=== PATIENT | male | born 2000 | race Caucasian/White ===

== ENCOUNTER 2019-05-29 23:19 | Inpatient (IN) | payer OTHER ==
--- NOTE | 2019-05-30 00:59 | PDOC ---
History of Present Illness - General Chief Complaint: Syncope/Near Syncope Stated Complaint: SYNCOPE Time Seen by Provider: 05/30/19 00:51 History Source: Patient Exam Limitations: No Limitations - History of Present Illness Initial Comments: Pt is a 19 yo M, with PMH of asthma (intermittent, controlled with albuterol), and recent ringworm (treated with terbinafine), who is presenting after a syncopal episode. Pt states he was walking home after consuming "a few sips of alcohol at a [employer], but was not drunk," and was tripping over speed bumps in the street. Pt states he walked into a gas station, "feeling nauseous and the room was spinning," and "the next thing I knew I was leaving the gas station and I woke up on the ground". Pt is complaining of pain in his R shoulder and over his R forehead where he sustained a laceration. Pt was able to ambulate home (1-2 blocks) and his father brought him to the ED. The syncopal episode was unwitnessed, but pt denies any incontinence, tongue-biting, or prolonged confusion after waking up. Pt denies any recent fevers/chills, headache, vision changes, syncope, chest pain, palpitations, SOB, nausea/vomiting, abdominal pain , urinary symptoms, diarrhea/constipation, or leg swelling. Allergies: NKDA PCP: None Social: Pt smokes 1 ppd. Occasional alcohol use. Pt denies any illicit drug use. Pt denies any recent travel or sick contacts. Surgical: no relevant history. Family: no relevant history. No early cardiac deaths. 05/30/19 04:05 05/30/19 04:09 Past History - Travel Traveled outside of the country in the last 30 days: No Close contact w/someone who was outside of country & ill: No - Past Medical History Allergies/Adverse Reactions: Allergies Allergy/AdvReac Type Severity Reaction Status Date / Time No Known Allergies Allergy Verified 05/29/19 23:25 Asthma: Yes COPD: No - Surgical History GI Surgery: Yes (hernia repir x 2) - Immunization History Immunization Up to Date: Yes - Psycho Social/Smoking Cessation Hx Smoking History: Never smoked Hx Alcohol Use: Yes Drug/Substance Use Hx: No Cardiac Specific PMH - Complaint Specific PMHX Abdominal Aortic Aneurysm: No Angina: No Cardiac Arrhythmia: No Cardiac Stent: No GERD: No Myocardial Infarction: No Pacemaker: No Pulmonary Embolus: No Valvular Heart Disease: No Peripheral Vascular Disease: No Review of Systems - Review of Systems Able to Perform ROS?: Yes Is the patient limited [place]an proficient: No Constitutional: Yes: Weight Stable. No: Chills, Diaphoresis, Fever, Loss of Appetite, Malaise, Weakness HEENTM: No: Blurred Vision, Recent change in vision, Nose Congestion, Throat Pain, Throat Swelling, Difficulty Swallowing Respiratory: No: Cough, Orthopnea, Shortness of Breath Cardiac (ROS): Yes: Lightheadedness, Syncope. No: Chest Pain, Edema, Irregular Heart Rate, Palpitations, Chest Tightness ABD/GI: No: Constipated, Diarrhea, Nausea, Poor Appetite, Poor Fluid Intake, Vomiting, Abdominal cramping : No: Burning, Dysuria, Frequency, Flank Pain, Pain, Urgency Musculoskeletal: Yes: Joint Pain (R shoulder/clavicular pain). No: Back Pain, Muscle Pain, Muscle Weakness, Neck Pain Integumentary: No: Rash Neurological: Yes: Unsteady Gait, Dizziness. No: Headache, Numbness, Paresthesia, Seizure, Weakness, Ataxia Psychiatric: No: Sleep Pattern Change, Change in Appetite Endocrine: No: Increased Urine, Change in Weight Hematologic/Lymphatic: No: Anemia, Blood Clots, Easy Bleeding, Easy Bruising All Other Systems: Reviewed and Negative *Physical Exam - Vital Signs Last Vital Signs Temp Pulse Resp BP Pulse Ox 97.1 F L 80 20 110/59 L 99 05/29/19 23:26 05/29/19 23:26 05/29/19 23:26 05/29/19 23:26 05/29/19 23:26 - Physical Exam Comments: Vitals stable, pt afebrile. Pt in NAD, but mild amount of bleeding over R eyebrow, controlled with pressure. Thin body habitus. Pt alert and oriented x3. shank sander generally intact, muscular strength and sensation intact. Cerebellar exam WNL. No midline spinal tenderness, step-offs, or crepitus. Head normocephalic. Small (~1 cm) linear laceration over R eyebrow, clean with minimal bleeding. Small abrasions over R forehead, b/l knees. Edema of R shoulder, with TTP over anterior R shoulder and pain with abduction. R arm and elbow neurovascularly intact. Eyes PERRLA, EOMI. No nystagmus, visual maldonado intact. Oropharynx without erythema or exudates, no LAD b/l. No nasal congestion. Hearing intact. Clear heart sounds, S1/S2, no JVD, b/l pedal edema, or heart murmur. No reproducible chest wall TTP. Clear lung sounds, no respiratory distress, wheezes, crackles, or accessory muscle use. No abdominal or CVA tenderness to palpation, no rebound, no guarding. Abdomen soft, non-distended, and with normoactive bowel sounds. Skin without jaundice or rash. 05/30/19 04:10 Heart Score/ECG Review - History History: Slightly suspicious - Electrocardiogram EKG: Non specific repolarization disturbance - Age Age: </= 45 - Risk Factors Based on the list above the patient has:: No risk factors known - Troponin Troponin: </= normal limit - Score Heart Score - Total: 1 Eligibility Checklist For AMI - INCLUSION CRITERIA Prolonged (>30 minutes)ischemic pain: No 12 Lead ECG indicates AMI: No ST elevation >1 mm in at least 2 limb leads: No ST elevation>2 mm in at least 2 contiguous precordial leads: No LBBB with clinical symptoms consistent with an AMI: No - EXCLUSION CRITERIA Active internal bleeding or hx of hemorrhagic diathesis: No Known bleeding diathesis: No Major surgery or serious trauma within the previous 6 weeks: No History of cerebrovascular accident(CVA): No History of central nervous system structural abnormality: No History of malignant hypertension or uncontrolled HTN: No Hemostatic defects secondary to severe hepatic/renal disease: No Diabetic hemorrhagic retinopathy: No or recent delivery(within 6 weeks): No Patients currently receiving oral anticoagulants(INR>2): No Procedures - Laceration/Wound Repair Right Upper Anterior Lateral Face Wound Length: to 2.5 cm Wound Explored: clean, no foreign body present Wound's Depth, Shape: superficial, linear Irrigated w/ Saline: Yes Betadine Prep: Yes Anesthesia: 1% Lidocaine w/ Epi Amount of Anesthetic (ccs): 3 Wound Debrided: minimal Wound Repaired With: Sutures Suture Size/Type: 6:0 Number of Sutures: 2 Layer Closure: No Number of Deep Layer Sutures: 0 Sterile Dressing Applied: No Splint Applied: No Sling Applied: No ED Treatment Course - LABORATORY CBC & Chemistry Diagram: 05/30/19 01:23 05/30/19 01:23 - ADDITIONAL ORDERS Additional order review: Laboratory Results 05/30/19 05/30/19 05/30/19 01:23 01:23 01:14 Sodium 141 Potassium 3.6 Chloride 106 Carbon Dioxide 31 Anion Gap 4 L BUN 20.8 H Creatinine 1.0 Est GFR (CKD-EPI)AfAm 125.02 Est GFR (CKD-EPI)NonAf 107.87 POC Glucometer 102 Random Glucose 76 Calcium 9.2 Magnesium 2.4 Total Bilirubin 0.4 AST 34 ALT 41 Alkaline Phosphatase 68 Creatine Kinase 238 Creatine Kinase Index 0.7 CK-MB (CK-2) 1.9 Troponin I < 0.02 Total Protein 7.2 Albumin 4.6 05/30/19 05/30/19 01:23 01:14 RBC 5.13 MCV 91.1 MCHC 33.7 RDW 12.6 MPV 10.9 Neutrophils % 80.3 Lymphocytes % 11.6 Monocytes % 6.8 Eosinophils % 1.0 Basophils % 0.3 POC Glucometer 102 - RADIOLOGY Radiology Studies Ordered: Category Date Time Status HEAD CT WITHOUT CONTRAST [CT] Stat CT Scan 05/30/19 01:21 Taken CHEST PA & LAT [RAD] Stat Radiology 05/30/19 01:00 Taken CLAVICLE-RIGHT SIDE [RAD] Stat Radiology 05/30/19 01:18 Taken SHOULDER-RIGHT [RAD] Stat Radiology 05/30/19 01:21 Taken - Medications Given in the ED: ED Medications Discontinued Medications Generic Name Dose Route Start Last Admin Trade Name Freq PRN Reason Stop Dose Admin Acetaminophen 1,000 mg 05/30/19 01:45 05/30/19 03:02 Ofirmev Injection - IVPB 05/30/19 01:46 1,000 mg ONCE ONE Administration Sodium Chloride 1,000 mls @ 1,000 mls/hr 05/30/19 01:45 05/30/19 03:02 Normal Saline - IV 05/30/19 02:44 1,000 mls/hr ASDIR STA Administration Meclizine HCl 25 mg 05/30/19 02:44 05/30/19 03:02 Antivert - PO 05/30/19 02:45 25 mg ONCE ONE Administration Medical Decision Making - Medical Decision Making Pt was seen at bedside, also will be seen by attending Dr. Pascal. Pt presenting after syncopal episode. Will evaluate for electrolyte imbalances, toxicology/ illicit drugs, anemia. Will evaluate with x-rays and non-contrast head CT to eval for bleed vs fractures. Pts medical history and this event not as consistent with seizures. Pt to be admitted for observation after work-up. Provided 1 g ofirmev, 25 mg PO meclizine, boostrix, and 1 L IV NS for improvement of pain and vertigo. Will continue to reassess pt and monitor for symptomatic improvement. ECG: NSR, intervals WNL (HR 69, OH 120, QRS 102, QTc 428). TWI in V2 and aVL, with no reciprocal changes, no ST segment elevations. No prior for comparison. Chest, shoulder, and clavicle x-rays without acute pathology. Laceration repaired (see procedure note) CBC and CMP generally WNL. WBC 13, likely elevated from acute stress reaction/ fall. Trop <.02 with no significant ECG abnormalities Pt provided UA for utox, pending. Pt admitted to hospitalist team (Dr. Cheng) for observation given unwitnessed fall and syncopal episode this evening. Pt needs continued heart monitoring and likely evaluation by cardiology team. Pt stable and resting comfortably. States feeling better after interventions. 05/30/19 04:17 Discharge - Discharge Information Problems reviewed: Yes Clinical Impression/Diagnosis: Laceration Syncope Qualifiers: Syncope type: unspecified Qualified Code(s): R55 - Syncope and collapse Closed head injury Qualifiers: Encounter type: initial encounter Qualified Code(s): S09.90XA - Unspecified injury of head, initial encounter Condition: Stable - Admission Yes - Follow up/Referral - Patient Discharge Instructions - Post Discharge Activity
[2019-05-30] MEDS ORDERED: ACETAMINOPHEN 1000 MG/100 ML VIAL (NON FORMULARY) IVPB ONE (01:45)
[2019-05-30] MEDS ORDERED: SODIUM CHLORIDE 1,000 ML IV STA (01:45)
[2019-05-30 01:54] LABS: BASO % 0.3 % (0-2.0); HEMATOCRIT 46.7 % (35.4-49); HEMOGLOBIN 15.7 GM/dL (11.7-16.9); LYMPH % 11.6 % (8-40); MCH 30.7 pg (25.7-33.7); MCHC 33.7 g/dl (32.0-35.9); MEAN CELL VOLUME 91.1 fl (80-96); MEAN PLT VOLUME 10.9 fl (7.5-11.1); MONO % 6.8 % (3.8-10.2); NEUT % 80.3 % (42.8-82.8); PLATELET COUNT 144 K/MM3 (134-434); RBC 5.13 M/mm3 (4.00-5.60); RDW 12.6 % (11.9-15.9); WHITE BLOOD COUNT 13.8 K/mm3 (4.0-10.0)
[2019-05-30 02:32] LABS: ALBUMIN 4.6 g/dl (3.4-5.0); BILIRUBIN,TOTAL 0.4 mg/dL (0.2-1); BLOOD UREA NITROGEN 20.8 mg/dL (7-18); CALCIUM 9.2 mg/dL (8.5-10.1); MAGNESIUM 2.4 mg/dL (1.8-2.4); POTASSIUM 3.6 mmol/L (3.5-5.1); TOT PROT 7.2 g/dl (6.4-8.2)
[2019-05-30] MEDS ORDERED: MECLIZINE HCL 25 MG TABLET (FP) PO ONE (02:44)
[2019-05-30] MEDS ORDERED: DIPHTH,PERTUSS(ACELL),TET 0.5 ML DISP.SYRIN IM ONE ×2 (02:44→04:43)
[2019-05-30] MEDS ORDERED: MECLIZINE HCL 25 MG TABLET (FP) ONE (02:55)
[2019-05-30] MEDS ORDERED: ACETAMINOPHEN INJECTION 100 ML IVPB ONE (02:55)
--- NOTE | 2019-05-30 03:19 | PN ---
Teaching Attending Note Name of Resident: Dayanara No ATTENDING PHYSICIAN STATEMENT I saw and evaluated the patient. I reviewed the resident's note and discussed the case with the resident. I agree with the resident's findings and plan as documented. SUBJECTIVE: Patient is a 19 year old man with a PMH of Asthma (intermittent, controlled with albuterol), Tobacco use (1 PPD) and recent Ringworm infection (treated with terbinafine), who is presenting after a syncopal episode. Says he was walking home after spending time with his girlfriend jenny and consuming alcohol and smoking marijuana and was tripping over speed bumps in the street. States he walked into a gas station, "feeling nauseous and the room was spinning ," and "the next thing I knew I was leaving the gas station and I woke up on the ground". Has pain in his right shoulder and over his right forehead where he sustained a laceration. He was able to walk home (1-2 blocks) and his father brought him to the ER. The syncopal episode was unwitnessed. He denies any incontinence, tongue-biting, or prolonged confusion after waking up. Has chronic suprapubic pain. Denies fevers, chills, headache, vision changes, chest pain, palpitations, SOB, nausea, vomiting, abdominal pain, urinary symptoms, diarrhea, constipation, or leg swelling. Occasional alcohol use. Denies any other illicit drug use (besides marijuana), recent travel or sick contacts. No relevant family history or early cardiac deaths or premature CAD. OBJECTIVE: Alert Vital Signs Period Temp Pulse Resp BP Sys/Roe Pulse Ox Last 24 Hr 97.1 F 80 20 110/59 99 HEENT: No Jaundice, eye redness or discharge, PERRLA, EOMI. Normocephalic, laceration right forehead. External ears are normal and hearing is grossly intact. No nasal discharge. Neck: Supple, nontender. No palpable adenopathy or thyromegaly. No JVD Chest: Good effort. Clear to auscultation and percussion. Heart: Regular. No S3, rub or murmur Abdomen: Not distended, soft, nontender and no HSM. No rebound or guarding. Normal bowel sounds. Ext: Peripheral pulses intact. No leg edema. Skin: Warm and dry. No petechiae, fungal rash in forearms and no ecchymosis. Neuro: Alert. Oriented x3. CN 2-12 grossly intact. Sensation grossly intact in all four extremities and DTR are symmetric. Psych: Appropriate mood and affect. Good insight. Abnormal Lab Results 05/30/19 05/30/19 01:23 01:23 WBC 13.8 H Absolute Neuts (auto) 11.1 H Anion Gap 4 L BUN 20.8 H ASSESSMENT AND PLAN: 1. Syncope - Cause unclear. May have been intoxicated - alcohol level and urine toxicology screen pending. No acute abnormality on head CT, CXR, clavicle and shoulder xrays. EKG shows NSR with t wave inversion in V1-2 but initial troponin is negative. Will get ECHO, monitor on telemetry, get carotid doppler and consult cardiology. Repeat EKG and troponin. Leukocytosis is unexplained. Will repeat CBC and if still elevated will evaluate for tick-borne disease. Get STI panel. 2. Tobacco Use Counseled on risks associated with tobacco use. We will provide patient all the necessary assistance to facilitate smoking cessation and prescribe Nicotine patch. 3. Alcohol use - Implement [facility] alcohol withdrawal protocol and do neurochecks. Implement seizure, fall and aspiration precautions. Treat with thiamine and folic acid and monitor electrolytes (Ca,Mg,K,P). Counseled patient about abstaining from alcohol. Will consult media services specialist and refer to alcohol detox upon discharge. 4. DVT prophylaxis - Lovenox 40 mg SQ q 24 hours. 5. Advance directives - Full code
--- NOTE | 2019-05-30 03:51 | PDOC ---
Documentation entered by Janeth Ogden SCRIBE, acting as scribe for Jamey Pascal MD. Jamey Pascal MD: This documentation has been prepared by the pérezibe, Janeth Ogden SCRIBE, under my direction and personally reviewed by me in its entirety. I confirm that the documentation accurately reflects all work, treatment, procedures, and medical decision making performed by me. Attending Attestation - Resident Resident Name: OsielCherelle - ED Attending Attestation I have performed the following: I have examined & evaluated the patient, The case was reviewed & discussed with the resident, I agree w/resident's findings & plan, Exceptions are as noted - HPI HPI: 05/30/19 03:50 19 M with h/o asthma presenting to ED with syncopal episode. Pt states he had a few drinks tonight. On his way home, he began to feel lightheaded. Pt stopped by a gas station and subsequently lost consciousness. Does not know how long he was unconscious for but recalls waking up on the ground. Pt denies any CP/SOB/ palpitations at any point. - Physicial Exam PE: 05/30/19 03:51 "GENERAL: Awake, alert, and fully oriented, in no acute distress. HEAD: + laceration to R forehead EYES: PERRLA, EOMI, sclera anicteric, conjunctiva clear ENT: Auricles normal inspection, hearing grossly normal, nares patent, oropharynx clear without exudates. Moist mucosa NECK: Nontender, no stepoffs, Normal ROM, supple, no lymphadenopathy, JVD, or masses LUNGS: Breath sounds equal, clear to auscultation bilaterally. No wheezes, and no crackles HEART: Regular rate and rhythm, normal S1 and S2, no murmurs, rubs or gallops ABDOMEN: Soft, nontender, normoactive bowel sounds. No guarding, no rebound. No masses EXTREMITIES: Normal range of motion, no edema. No clubbing or cyanosis. No cords, erythema, or tenderness NEUROLOGICAL: Cranial nerves II through XII intact. 5/5 strength and sensation in all extremities, Normal speech, normal gait, normal cerebellar function SKIN: Warm, Dry, normal turgor, no rashes or lesions noted. - Medical Decision Making 05/30/19 03:51 19 M with syncopal episode. - Labs - CT head - Lac repair
--- NOTE | 2019-05-30 04:47 | HP ---
CHIEF COMPLAINT: PCP: none HISTORY OF PRESENT ILLNESS: This is a 19 year old male with past medical history of asthma, inguinal and umbilical hernia s/p repair, presenting the ED after a syncopal episode. Pt was visiting his girlfriend [facility] over the weekend and had 1 bottle of whisky, smoked a joint of marijuana, 5-6 cigarettes and drank 4-5 shots of whisky on the train home from [facility] yesterday. After going home, pt felt hungry and walked to the gas station when he felt extremely dizzy, lost consciousness and fell to the ground. Pt endorses experiencing blurry vision and feeling nauseous prior to losing consciousness. He woke up after a few minutes when he realized he had fallen to the ground. He knew where he was but was a little confused. He walked back home where he noticed blood on his forehead and started experiencing a 8/10 headache and 8/10 shoulder pain which prompted him to come to the ED. Currently, pt admits to mild headache, nausea, right shoulder pain, right jaw pain, right knee pain Denies chest pain, palpitations, vomiting, prior history of syncope and family history of sudden cardiac or genetic abnormalities. Pt also reported a history of suprapubic pain for the past few years every morning after waking up. Sometimes the pain is associated with diarrhea. Pt was told that he has a mild gluten allergy and now tries to avoid it as much as he can. ER course was notable for: (1) CBC with leukocytosis 13.8, CMP unremarkable (2) Head, clavicle, shoulder and chest Xray with no acute fractures or pathology (3) orfimev for pain. EKG was sinus rhythm with non specific T wave change Recent Travel: [facility] to visit girlfriend PAST MEDICAL HISTORY: as above PAST SURGICAL HISTORY: inguinal and umbilical hernia repair Social History: Smokin-20 cig a day since 9 yrs old Alcohol: 1 bottle of whiskey on weekend. a couple of shots during the week Drugs: marijuana daily Allergies No Known Allergies Allergy (Verified 05/29/19 23:25) HOME MEDICATIONS: REVIEW OF SYSTEMS CONSTITUTIONAL: Absent: fever, chills, diaphoresis, generalized weakness, malaise, loss of appetite, weight change HEENT: visual changes Absent: rhinorrhea, nasal congestion, throat pain, throat swelling, difficulty swallowing, mouth swelling, ear pain, eye pain, CARDIOVASCULAR: syncope, lightheadedness Absent: chest pain, palpitations, irregular heart rate, , peripheral edema RESPIRATORY: Absent: cough, shortness of breath, dyspnea with exertion, orthopnea, wheezing, stridor, hemoptysis GASTROINTESTINAL:nausea, chronic abdominal pain Absent: , abdominal distension, vomiting, diarrhea, constipation, melena, hematochezia GENITOURINARY: Absent: dysuria, frequency, urgency, hesitancy, hematuria, flank pain, genital pain MUSCULOSKELETAL: right shoulder arthralgia Absent: myalgia,, joint swelling, back pain, neck pain SKIN: fungal rash Absent: itching, pallor HEMATOLOGIC/IMMUNOLOGIC: Absent: easy bleeding, easy bruising, lymphadenopathy, frequent infections ENDOCRINE: Absent: unexplained weight gain, unexplained weight loss, heat intolerance, cold intolerance NEUROLOGIC: headache Absent: focal weakness or paresthesias, dizziness, unsteady gait, seizure, mental status changes, bladder or bowel incontinence PSYCHIATRIC: Absent: anxiety, depression, suicidal or homicidal ideation, hallucinations. PHYSICAL EXAMINATION Vital Signs - 24 hr 05/29/19 05/30/19 23:26 04:40 Temperature 97.1 F L Pulse Rate 80 Pulse Rate [ 73 Right side Sitting] Pulse Rate [ 77 Right side Standing] Pulse Rate [ 65 Right side Supine] Respiratory 20 Rate Blood Pressure 110/59 L Blood Pressure 110/64 [Right side Sitting] Blood Pressure 104/60 [Right side Standing] Blood Pressure 122/69 [Right side Supine] O2 Sat by Pulse 99 Oximetry (%) GENERAL: Awake, alert, and fully oriented, in mild distress. HEAD: Normal right eyebrow laceration s/p suture EYES: Pupils equal, round and reactive to light, extraocular movements intact, sclera anicteric, conjunctiva clear. No lid lag. EARS, NOSE, THROAT: oropharynx clear without exudates. Moist mucous membranes. NECK: Normal range of motion, supple without lymphadenopathy, JVD, or masses. LUNGS: Breath sounds equal, clear to auscultation bilaterally. No wheezes, and no crackles. No accessory muscle use. HEART: Regular rate and rhythm, normal S1 and S2 without murmur, rub or gallop. ABDOMEN: Soft, chronic suprapubic tenderness, not distended, normoactive bowel sounds, no guarding, no rebound, no masses. No hepatomegaly or splenomegaly. MUSCULOSKELETAL: Normal range of motion at all joints except right shoulder extension and abduction. No bony deformities or tenderness. No CVA tenderness. UPPER EXTREMITIES: 2+ pulses, warm, well-perfused. No cyanosis. No clubbing. No peripheral edema. LOWER EXTREMITIES: 2+ pulses, warm, well-perfused. No calf tenderness. No peripheral edema. NEUROLOGICAL: Cranial nerves II-XII intact. Normal speech. Normal gait. PSYCHIATRIC: Cooperative. Good eye contact. Appropriate mood and affect. SKIN: Warm, dry, normal turgor, fungal rash in b/l forearms, scratches and cuts from fall im knees and legs Laboratory Results - last 24 hr 05/30/19 05/30/19 05/30/19 01:14 01:23 01:23 WBC 13.8 H RBC 5.13 Hgb 15.7 Hct 46.7 MCV 91.1 MCH 30.7 MCHC 33.7 RDW 12.6 Plt Count 144 MPV 10.9 Absolute Neuts (auto) 11.1 H Neutrophils % 80.3 Lymphocytes % 11.6 Monocytes % 6.8 Eosinophils % 1.0 Basophils % 0.3 Nucleated RBC % 0 Sodium Potassium Chloride Carbon Dioxide Anion Gap BUN Creatinine Est GFR (CKD-EPI)AfAm Est GFR (CKD-EPI)NonAf POC Glucometer 102 Random Glucose Calcium Magnesium Total Bilirubin AST ALT Alkaline Phosphatase Creatine Kinase 238 Creatine Kinase Index 0.7 CK-MB (CK-2) 1.9 Troponin I < 0.02 Total Protein Albumin 05/30/19 01:23 WBC RBC Hgb Hct MCV MCH MCHC RDW Plt Count MPV Absolute Neuts (auto) Neutrophils % Lymphocytes % Monocytes % Eosinophils % Basophils % Nucleated RBC % Sodium 141 Potassium 3.6 Chloride 106 Carbon Dioxide 31 Anion Gap 4 L BUN 20.8 H Creatinine 1.0 Est GFR (CKD-EPI)AfAm 125.02 Est GFR (CKD-EPI)NonAf 107.87 POC Glucometer Random Glucose 76 Calcium 9.2 Magnesium 2.4 Total Bilirubin 0.4 AST 34 ALT 41 Alkaline Phosphatase 68 Creatine Kinase Creatine Kinase Index CK-MB (CK-2) Troponin I Total Protein 7.2 Albumin 4.6 ASSESSMENT/PLAN: Syncope most likely due to intoxication cannot r/o cardiac or neurological causes no family of genetic cardiac disease or sudden cardiac head CT negative admit to tele cardiac monitoring echo for cardiac assessment repeat EKG as pt had non specific ST changes in V1 and V2 initial trop neg. repeat pending orthostatics negative cardio Dr Ojeda consulted neuro checks alcohol level sent to assess probability of intoxication Alcohol abuse with marijuana abuse however CIWA 1 on admission monitor for withdrawal started librium protocol fall and seizure precautions Utox sent alcohol level sent started on thiamine, folate and multivitamins Leukocytosis w/o clear infectious source UA and CXR negative currently afebrile and only complaints of chronic suprapubic pain CBC with leukocytosis 13.8 with left shift repeat CBC pending this am if WBC continue to be elevated, investigae further poss lyme or tick born in the setting [place] recent [place] travel? STD panel with HIV and chlamydia & gonorrhea sent FEN regular diet no standing fluids monitor lytes DVT lovenox daily Visit type - Emergency Visit Emergency Visit: Yes ED Registration Date: 05/30/19 Care time: The patient presented to the Emergency Department on the above date and was hospitalized for further evaluation of their emergent condition. - New Patient This patient is new to me today: Yes Date on this admission: 05/30/19 - Critical Care Critical Care patient: No ATTENDING PHYSICIAN STATEMENT I saw and evaluated the patient. I reviewed the resident's note and discussed the case with the resident. I agree with the resident's findings and plan as documented. SUBJECTIVE: OBJECTIVE: ASSESSMENT AND PLAN:
[2019-05-30 05:02] LABS: EPI CELLS 2.4 /HPF (0-5/HPF); HYALINE CASTS 10 /lpf (0-8); PH,URINE 6.5 (5.0-8.0); URINE APPEARANCE CLEAR; URINE BACTERIA 0.5 /hpf (NEGATIVE); URINE BILIRUBIN NEGATIVE (NEGATIVE); URINE COLOR YELLOW; URINE GLUCOSE (UA) NEGATIVE (NEGATIVE); URINE KETONE TRACE (NEGATIVE); URINE LEUK ESTERASE NEGATIVE (NEGATIVE); URINE NITRITE NEGATIVE (NEGATIVE); URINE PROTEIN 1+ (NEGATIVE); URINE RBC 0 /hpf (0-4); URINE UROBILINOGEN 0.2 mg/dL (0.2-1.0); URINE WBC 1 /hpf (0-5)
[2019-05-30 05:19] VITALS: BMI 19.7
[2019-05-30] MEDS ORDERED: ACETAMINOPHEN 325 MG TABLET (FP) PO PRN (05:46)
[2019-05-30] MEDS ORDERED: chlordiazePOXIDE HCL 10 MG CAPSULE PO PRN (05:55)
[2019-05-30] MEDS: chlordiazePOXIDE HCL 25 MG CAPSULE PO SCH ×2 (06:11→14:04)
--- NOTE | 2019-05-30 07:24 | PN ---
Progress Note, Physician History of Present Illness: This is a 19 year old male with past medical history of asthma, inguinal and umbilical hernia s/p repair, presenting the ED after a syncopal episode. Pt was visiting his girlfriend [facility] over the weekend and had 1 bottle of whisky, smoked a joint of marijuana, 5-6 cigarettes and drank 4-5 shots of whisky on the train home from [facility] yesterday. After going home, pt felt hungry and walked to the gas station when he felt extremely dizzy, lost consciousness and fell to the ground. Pt endorses experiencing blurry vision and feeling nauseous prior to losing consciousness. He woke up after a few minutes when he realized he had fallen to the ground. He knew where he was but was a little confused. He walked back home where he noticed blood on his forehead and started experiencing a 8/10 headache and 8/10 shoulder pain which prompted him to come to the ED. Currently, pt admits to mild headache, nausea, right shoulder pain, right jaw pain, right knee pain Denies chest pain, palpitations, vomiting, prior history of syncope and family history of sudden cardiac or genetic abnormalities. Pt also reported a history of suprapubic pain for the past few years every morning after waking up. Sometimes the pain is associated with diarrhea. Pt was told that he has a mild gluten allergy and now tries to avoid it as much as he can. ER course was notable for: (1) CBC with leukocytosis 13.8, CMP unremarkable (2) Head, clavicle, shoulder and chest Xray with no acute fractures or pathology (3) orfimev for pain. EKG was sinus rhythm with non specific T wave change - Current Medication List Current Medications: Active Medications Acetaminophen (Tylenol -) 650 mg PO Q6H PRN PRN Reason: PAIN LEVEL 1-5 Last Admin: 05/30/19 06:10 Dose: 650 mg Chlordiazepoxide HCl (Librium -) 10 mg PO Q12H PRN PRN Reason: Signs/symptoms of Withdrawal Stop: 06/01/19 23:59 Chlordiazepoxide HCl (Librium -) 10 mg PO Q8H PRN PRN Reason: Signs/symptoms of Withdrawal Stop: 05/31/19 23:59 Chlordiazepoxide HCl (Librium -) 25 mg PO Q8H [facility] Stop: 05/30/19 21:01 Last Admin: 05/30/19 06:11 Dose: 25 mg Chlordiazepoxide HCl (Librium -) 15 mg PO Q8H [facility] Stop: 05/31/19 21:01 Chlordiazepoxide HCl (Librium -) 10 mg PO Q8H [facility] Stop: 06/01/19 21:01 Chlordiazepoxide HCl (Librium -) 10 mg PO ONCE ONE Stop: 06/02/19 05:01 Enoxaparin Sodium (Lovenox -) 40 mg SQ DAILY [facility] Folic Acid (Folic Acid -) 1 mg PO DAILY [facility] Multivitamins/Minerals/Vitamin C (Tab-A-Vit -) 1 tab PO DAILY [facility] Thiamine HCl (Vitamin B1 -) 100 mg PO DAILY [facility] - Objective Vital Signs: Vital Signs Temperature 97.1 F L 05/29/19 23:26 Pulse Rate 75 05/30/19 05:14 Respiratory Rate 20 05/30/19 05:14 Blood Pressure 125/63 05/30/19 05:14 O2 Sat by Pulse Oximetry (%) 100 05/30/19 05:24 Additional Findings/Remarks: GENERAL: Awake, alert, and fully oriented, in mild distress. HEAD: Normal right eyebrow laceration s/p suture EYES: Pupils equal, round and reactive to light, extraocular movements intact, sclera anicteric, conjunctiva clear. No lid lag. EARS, NOSE, THROAT: oropharynx clear without exudates. Moist mucous membranes. NECK: Normal range of motion, supple without lymphadenopathy, JVD, or masses. LUNGS: Breath sounds equal, clear to auscultation bilaterally. No wheezes, and no crackles. No accessory muscle use. HEART: Regular rate and rhythm, normal S1 and S2 without murmur, rub or gallop. ABDOMEN: Soft, chronic suprapubic tenderness, not distended, normoactive bowel sounds, no guarding, no rebound, no masses. No hepatomegaly or splenomegaly. MUSCULOSKELETAL: Normal range of motion at all joints except right shoulder extension and abduction. No bony deformities or tenderness. No CVA tenderness. UPPER EXTREMITIES: 2+ pulses, warm, well-perfused. No cyanosis. No clubbing. No peripheral edema. LOWER EXTREMITIES: 2+ pulses, warm, well-perfused. No calf tenderness. No peripheral edema. NEUROLOGICAL: Cranial nerves II-XII intact. Normal speech. Normal gait. PSYCHIATRIC: Cooperative. Good eye contact. Appropriate mood and affect. SKIN: Warm, dry, normal turgor, fungal rash in b/l forearms, scratches and cuts from fall im knees and legs Labs: CBC, BMP 05/30/19 01:23 05/30/19 01:23 - ....Imaging X-ray: Report Reviewed (Head, clavicle, shoulder and chest Xray with no acute fractures or pathology) Problem List - Problems (1) Prophylactic measure Assessment/Plan: FEN regualr diet no additional IVF needed monitor electrolytes nutritional supplements; DVT lovenox Dispo maintain on tele full code discharge planning to home Code(s): Z29.9 - ENCOUNTER FOR PROPHYLACTIC MEASURES, UNSPECIFIED (2) Intoxication by drug Assessment/Plan: tox screen positive for marijuana ETOH <3.0 CIWA 1 started on librium protocol addiction medicine consultation requested Code(s): F19.929 - OTH PSYCHOACTIVE SUBSTANCE USE, UNSP WITH INTOXICATION, UNSP (3) ETOH abuse Assessment/Plan: ETOH <3.0 CIWA 1 started on librium protocol addiction medicine consultation requested Code(s): F10.10 - ALCOHOL ABUSE, UNCOMPLICATED (4) Leukocytosis Assessment/Plan: aberile WBC 8.3 down from 13.8 monitor temp, cbc Code(s): D72.829 - ELEVATED WHITE BLOOD CELL COUNT, UNSPECIFIED (5) Laceration Code(s): [id number] - (6) Syncope Assessment/Plan: syncopal w/u in progress TTE, carotid Doppler pending cardiology consultation appreciate fall precautions maintain on tele Code(s): R55 - SYNCOPE AND COLLAPSE Qualifiers: Syncope type: unspecified Qualified Code(s): R55 - Syncope and collapse Visit type - Emergency Visit Emergency Visit: Yes ED Registration Date: 05/30/19 Care time: The patient presented to the Emergency Department on the above date and was hospitalized for further evaluation of their emergent condition. - New Patient This patient is new to me today: Yes Date on this admission: 05/30/19 - Critical Care Critical Care patient: No - Discharge Referral Referred to [facility] Med P.C.: No
[2019-05-30 08:03] LABS: COCAINE, UR NEGATIVE ng/ml (CUTOFF=300); METHADONE, UR NEGATIVE ng/ml (CUTOFF=300); OPIATES, URI NEGATIVE ng/ml (CUTOFF=300); PHENCYCLIDINE,URINE NEGATIVE ng/ml (CUTOFF=25); URINE AMPHETAMINES NEGATIVE ng/ml (CUTOFF=500); URINE BARBITURATES NEGATIVE ng/ml (CUTOFF=200); URINE BENZODIAZEPINES NEGATIVE ng/ml (CUTOFF=200)
[2019-05-30 08:32] LABS: BASO % 0.4 % (0-2.0); EOS % 2.6 % (0-4.5); HEMATOCRIT 42.1 % (35.4-49); HEMOGLOBIN 14.5 GM/dL (11.7-16.9); LYMPH % 23.8 % (8-40); MCH 31.1 pg (25.7-33.7); MCHC 34.4 g/dl (32.0-35.9); MEAN CELL VOLUME 90.5 fl (80-96); MEAN PLT VOLUME 10.7 fl (7.5-11.1); MONO % 8.9 % (3.8-10.2); NEUT % 64.3 % (42.8-82.8); PLATELET COUNT 127 K/MM3 (134-434); RBC 4.65 M/mm3 (4.00-5.60); RDW 12.5 % (11.9-15.9); WHITE BLOOD COUNT 8.3 K/mm3 (4.0-10.0)
[2019-05-30 08:43] LABS: ALBUMIN 3.9 g/dl (3.4-5.0); BILIRUBIN,TOTAL 0.7 mg/dL (0.2-1); BLOOD UREA NITROGEN 18.3 mg/dL (7-18); CALCIUM 8.6 mg/dL (8.5-10.1); CREATININE 0.8 mg/dL (0.55-1.3); MAGNESIUM 2.3 mg/dL (1.8-2.4); PHOSPHOROUS 4.2 mg/dL (2.5-4.9); POTASSIUM 3.8 mmol/L (3.5-5.1)
[2019-05-30 08:50] VITALS: PULSE 66
[2019-05-30] MEDS ORDERED: KETOROLAC TROMETHAMINE 30 MG/1 ML VIAL IM ONE (09:12)
--- NOTE | 2019-05-30 09:32 | CON.CARD ---
Consult Consult Specialty:: Cardiology Referred by:: Hospitalist Medicine Reason for Consultation:: Syncope - History of Present Illness Chief Complaint: Syncope History of Present Illness: This is a 19 year old male with past medical history of asthma, inguinal and umbilical hernia s/p repair, presented the ED after a syncopal episode. Pt was visiting his girlfriend [facility] over the weekend and had 1 bottle of whisky, smoked a joint of marijuana, 5-6 cigarettes and drank 4-5 shots of whisky on the train home from [facility] yesterday. After going home, pt felt hungry and walked to the gas station when he felt extremely dizzy, lost consciousness and fell to the ground striking his head and right shoulder. Pt endorses experiencing blurry vision and feeling nauseous prior to losing consciousness. He woke up after a few minutes when he realized he had fallen to the ground. He knew where he was but was a little confused. He walked back home where he noticed blood on his forehead and started experiencing a 8/10 headache and 8/10 shoulder pain which prompted him to come to the ED. Currently, pt admits to mild headache, nausea, right shoulder pain, right jaw pain, right knee pain Denies chest pain, palpitations, vomiting, prior history of syncope and family history of sudden cardiac or genetic abnormalities. ER course was notable for: (1) CBC with leukocytosis 13.8, CMP unremarkable (2) Head, clavicle, shoulder and chest Xray with no acute fractures or pathology (3) orfimev for pain. EKG was sinus rhythm with non specific T wave change - History Source History Provided By: Patient Limitations to Obtaining History: No Limitations - Alcohol/Substance Use Hx Alcohol Use: Yes - Smoking History Smoking history: Current every day smoker Have you smoked in the past 12 months: Yes Aproximately how many cigarettes per day: 20 Home Medications - Allergies Allergies/Adverse Reactions: Allergies Allergy/AdvReac Type Severity Reaction Status Date / Time gluten Allergy Mild Verified 05/30/19 05:30 pollen extracts Allergy Mild Verified 05/30/19 05:30 Review of Systems - Review of Systems Musculoskeletal: reports: Joint Pain (Right shoulder) Neurological: reports: Headache Vital Signs: Vital Signs Temperature 98.0 F 05/30/19 08:50 Pulse Rate 66 05/30/19 08:50 Respiratory Rate 18 05/30/19 08:50 Blood Pressure 117/86 11/11/19 08:50 O2 Sat by Pulse Oximetry (%) 100 05/30/19 05:24 Constitutional: Yes: No Distress, Calm, Thin Neck: Yes: Supple Respiratory: Yes: Regular, CTA Bilaterally Gastrointestinal: Yes: Normal Bowel Sounds, Soft Cardiovascular: Yes: Regular Rate and Rhythm JVD: No Carotid Bruit: No Heart Sounds: Yes: S1, S2 Musculoskeletal: Yes: Muscle Pain (right deltoid discomfort) Edema: No - Other Data Labs, Other Data: CBC, BMP 05/30/19 07:48 05/30/19 07:48 Troponin, BNP 05/30/19 01:23 Troponin I < 0.02 Troponin, BNP 05/30/19 01:23 Troponin I < 0.02 Imaging - Results Chest X-ray: Report Reviewed (NAD) X-ray: Report Reviewed (No shoulder discomfort) Problem List - Problems (1) Contusion of right shoulder Code(s): S40.011A - CONTUSION OF RIGHT SHOULDER, INITIAL ENCOUNTER Qualifiers: Encounter type: initial encounter Qualified Code(s): S40.011A - Contusion of right shoulder, initial encounter (2) Closed head injury Code(s): S09.90XA - UNSPECIFIED INJURY OF HEAD, INITIAL ENCOUNTER Qualifiers: Encounter type: initial encounter Qualified Code(s): S09.90XA - Unspecified injury of head, initial encounter (3) ETOH abuse Code(s): F10.10 - ALCOHOL ABUSE, UNCOMPLICATED (4) Intoxication by drug Code(s): F19.929 - OTH PSYCHOACTIVE SUBSTANCE USE, UNSP WITH INTOXICATION, UNSP Qualifiers: Complication of substance-induced condition: uncomplicated Qualified Code(s ): F19.920 - Other psychoactive substance use, unspecified with intoxication, uncomplicated (5) Syncope Code(s): R55 - SYNCOPE AND COLLAPSE Qualifiers: Syncope type: unspecified Qualified Code(s): R55 - Syncope and collapse Assessment/Plan 05/30/2019 Echo: Normal LV and RV size and fxn, mild TR 05/30/2019 Carotid US: No sig stenosis 1. Syncope in context of alcohol and marijuana intoxication 2. Right shoulder contusion P:1. Abstinence from ETOH and toxic behaviors 2. NSAIDS, cool compression to right shoulder contusion 3. D/c planning
[2019-05-30] MEDS ORDERED: THIAMINE HCL 100 MG TABLET (FP) PO SCH (10:00)
[2019-05-30] MEDS ORDERED: MULTIVITAMINS (DAILY MVI) TABLET (FP) PO SCH (10:00)
[2019-05-30] MEDS ORDERED: ENOXAPARIN NA (PORCINE) 40 MG/0.4 ML DISP.SYRIN SQ SCH (10:00)
[2019-05-30] MEDS ORDERED: FOLIC ACID 1 MG TABLET (FP) PO SCH (10:00)
--- NOTE | 2019-05-30 11:53 | ECHO ---
Name: ALAINA CERVANTES Exam:Adult Echocardiogram Study Date: 05/30/2019 10:16 AM Age: 19 yrs Reason For Study: SYNCOPE Height: 73 in Weight: 149 lb BSA: 1.9 m2 MMode/2D Measurements & Calculations IVSd: 0.71 cm Ao root diam: 2.4 cm LVIDd: 3.7 cm LA dimension: 1.8 cm LVIDs: 2.1 cm LVPWd: 0.80 cm LVPWs: 1.3 cm EDV(Teich): 58.5 ml ESV(Teich): 13.6 ml LVOT diam: 1.8 cm RV S Tirso: 15.6 cm/sec Doppler Measurements & Calculations MV E max tirso: 70.1 cm/sec Ao V2 max: 119.4 cm/sec MV A max tirso: 31.1 cm/sec Ao max P.7 mmHg MV E/A: 2.3 MV dec time: 0.12 sec CATIE(V,D): 1.5 cm2 LV V1 max P.0 mmHg TR max tirso: 226.7 cm/sec LV V1 max: 71.6 cm/sec TR max P.6 mmHg PA V2 max: 116.7 cm/sec Med Peak E' Tirso: 7.8 cm/sec PA max P.5 mmHg Med E/e': 9.0 Lat Peak E' Tirso: 15.8 cm/sec Lat E/e': 4.4 Procedure A complete two-dimensional transthoracic echocardiogram was performed (2D, M-mode, Doppler and color flow Doppler). Left Ventricle The left ventricle is normal in size. Left ventricular systolic function is normal. No regional wall motion abnormalities noted. Right Ventricle The right ventricle is normal size. The right ventricular systolic function is normal. RV systolic TD I is 16 cm/s. Atria The left atrial size is normal. Right atrial size is normal. Mitral Valve The mitral valve is normal in structure and function. There is no mitral regurgitation noted. Tricuspid Valve The tricuspid valve is normal in structure and function. There is mild tricuspid regurgitation. Right ventricular systolic pressure is normal. Aortic Valve The aortic valve is normal in structure and function. No aortic regurgitation is present. Pulmonic Valve The pulmonic valve is not well visualized. Great Vessels The aortic root is normal size. Pericardium/Pleura There is no pericardial effusion. Interpretation Summary The left ventricle is normal in size. Left ventricular systolic function is normal. No regional wall motion abnormalities noted. The right ventricular systolic function is normal. The left atrial size is normal. Right atrial size is normal. There is mild tricuspid regurgitation. Right ventricular systolic pressure is normal. There is no pericardial effusion. Ashish Canela MD 05/30/2019 11:52 AM
[2019-05-30] MEDS ORDERED: traMADol HCL 50 MG TABLET PO PRN (13:20)
--- NOTE | 2019-05-30 13:34 | DS ---
Physical Exam: SUBJECTIVE: Patient seen and examined This is a 19 year old male with past medical history of asthma, inguinal and umbilical hernia s/p repair, presenting the ED after a syncopal episode. Pt was visiting his girlfriend [facility] [place] over the weekend and had 1 bottle of whisky, smoked a joint of marijuana, 5-6 cigarettes and drank 4-5 shots of whisky on the train home from [facility] [place] yesterday. After going home, pt felt hungry and walked to the gas station when he felt extremely dizzy, lost consciousness and fell to the ground. Pt endorses experiencing blurry vision and feeling nauseous prior to losing consciousness. He woke up after a few minutes when he realized he had fallen to the ground. He knew where he was but was a little confused. He walked back home where he noticed blood on his forehead and started experiencing a 8/10 headache and 8/10 shoulder pain which prompted him to come to the ED. Currently, pt admits to mild headache, nausea, right shoulder pain, right jaw pain, right knee pain Denies chest pain, palpitations, vomiting, prior history of syncope and family history of sudden cardiac or genetic abnormalities. OBJECTIVE: Vital Signs Period Temp Pulse Resp BP Sys/Roe Pulse Ox Last 24 Hr 97.1 F-98.0 F 65-80 18-20 104-125/59-86 99-100 PHYSICAL EXAM GENERAL: The patient is awake, alert, and fully oriented, in no acute distress. HEAD: Normal with no signs of trauma. EYES: PERRL, extraocular movements intact, sclera anicteric, conjunctiva clear. ENT: Ears normal, nares patent, oropharynx clear without exudates, moist mucous membranes. NECK: Trachea midline, full range of motion, supple. LUNGS: Breath sounds equal, clear to auscultation bilaterally, no wheezes, no crackles, no accessory muscle use. HEART: Regular rate and rhythm, S1, S2 without murmur, rub or gallop. ABDOMEN: Soft, nontender, nondistended, normoactive bowel sounds, no guarding, no rebound, no hepatosplenomegaly, no masses. EXTREMITIES: 2+ pulses, warm, well-perfused, no edema. NEUROLOGICAL: Cranial nerves II through XII grossly intact. Normal speech, gait not observed. PSYCH: Normal mood, normal affect. SKIN: Warm, dry, normal turgor, no rashes or lesions noted. LABS Laboratory Results - last 24 hr 05/30/19 05/30/19 05/30/19 01:14 01:23 01:23 WBC 13.8 H RBC 5.13 Hgb 15.7 Hct 46.7 MCV 91.1 MCH 30.7 MCHC 33.7 RDW 12.6 Plt Count 144 MPV 10.9 Absolute Neuts (auto) 11.1 H Neutrophils % 80.3 Lymphocytes % 11.6 Monocytes % 6.8 Eosinophils % 1.0 Basophils % 0.3 Nucleated RBC % 0 Sodium Potassium Chloride Carbon Dioxide Anion Gap BUN Creatinine Est GFR (CKD-EPI)AfAm Est GFR (CKD-EPI)NonAf POC Glucometer 102 Random Glucose Calcium Phosphorus Magnesium Total Bilirubin AST ALT Alkaline Phosphatase Creatine Kinase 238 Creatine Kinase Index 0.7 CK-MB (CK-2) 1.9 Troponin I < 0.02 Total Protein Albumin Urine Color Urine Appearance Urine pH Ur Specific [place] Urine Protein Urine Glucose (UA) Urine Ketones Urine Blood Urine Nitrite Urine Bilirubin Urine Urobilinogen Ur Leukocyte Esterase Urine WBC (Auto) Urine RBC (Auto) Urine Casts (Auto) U Epithel Cells (Auto) Urine Bacteria (Auto) Opiates Screen Methadone Screen Barbiturate Screen Phencyclidine Screen Ur Amphetamines Screen MDMA (Ecstasy) Screen Benzodiazepines Screen Cocaine Screen U Marijuana (THC) Screen Alcohol, Quantitative HIV 1&2 Antibody Screen HIV P24 Antigen 05/30/19 05/30/19 05/30/19 01:23 04:40 04:40 WBC RBC Hgb Hct MCV MCH MCHC RDW Plt Count MPV Absolute Neuts (auto) Neutrophils % Lymphocytes % Monocytes % Eosinophils % Basophils % Nucleated RBC % Sodium 141 Potassium 3.6 Chloride 106 Carbon Dioxide 31 Anion Gap 4 L BUN 20.8 H Creatinine 1.0 Est GFR (CKD-EPI)AfAm 125.02 Est GFR (CKD-EPI)NonAf 107.87 POC Glucometer Random Glucose 76 Calcium 9.2 Phosphorus Magnesium 2.4 Total Bilirubin 0.4 AST 34 ALT 41 Alkaline Phosphatase 68 Creatine Kinase Creatine Kinase Index CK-MB (CK-2) Troponin I Total Protein 7.2 Albumin 4.6 Urine Color Yellow Urine Appearance Clear Urine pH 6.5 Ur Specific [place] 1.028 Urine Protein 1+ H Urine Glucose (UA) Negative Urine Ketones Trace H Urine Blood Negative Urine Nitrite Negative Urine Bilirubin Negative Urine Urobilinogen 0.2 Ur Leukocyte Esterase Negative Urine WBC (Auto) 1 Urine RBC (Auto) 0 Urine Casts (Auto) 10 U Epithel Cells (Auto) 2.4 Urine Bacteria (Auto) 0.5 Opiates Screen Negative Methadone Screen Negative Barbiturate Screen Negative Phencyclidine Screen Negative Ur Amphetamines Screen Negative MDMA (Ecstasy) Screen Negative Benzodiazepines Screen Negative Cocaine Screen Negative U Marijuana (THC) Screen Positive A* Alcohol, Quantitative HIV 1&2 Antibody Screen HIV P24 Antigen 05/30/19 05/30/19 05/30/19 07:48 07:48 07:48 WBC 8.3 RBC 4.65 Hgb 14.5 Hct 42.1 MCV 90.5 MCH 31.1 MCHC 34.4 RDW 12.5 Plt Count 127 L MPV 10.7 Absolute Neuts (auto) 5.3 Neutrophils % 64.3 Lymphocytes % 23.8 D Monocytes % 8.9 Eosinophils % 2.6 D Basophils % 0.4 Nucleated RBC % 0 Sodium 141 Potassium 3.8 Chloride 110 H Carbon Dioxide 26 Anion Gap 5 L BUN 18.3 H Creatinine 0.8 Est GFR (CKD-EPI)AfAm 149.04 Est GFR (CKD-EPI)NonAf 128.60 POC Glucometer Random Glucose 96 Calcium 8.6 Phosphorus 4.2 Magnesium 2.3 Total Bilirubin 0.7 AST 26 ALT 32 Alkaline Phosphatase 59 Creatine Kinase Creatine Kinase Index CK-MB (CK-2) Troponin I Total Protein 6.0 L Albumin 3.9 Urine Color Urine Appearance Urine pH Ur Specific [place] Urine Protein Urine Glucose (UA) Urine Ketones Urine Blood Urine Nitrite Urine Bilirubin Urine Urobilinogen Ur Leukocyte Esterase Urine WBC (Auto) Urine RBC (Auto) Urine Casts (Auto) U Epithel Cells (Auto) Urine Bacteria (Auto) Opiates Screen Methadone Screen Barbiturate Screen Phencyclidine Screen Ur Amphetamines Screen MDMA (Ecstasy) Screen Benzodiazepines Screen Cocaine Screen U Marijuana (THC) Screen Alcohol, Quantitative < 3.0 HIV 1&2 Antibody Screen HIV P24 Antigen 05/30/19 07:48 WBC RBC Hgb Hct MCV MCH MCHC RDW Plt Count MPV Absolute Neuts (auto) Neutrophils % Lymphocytes % Monocytes % Eosinophils % Basophils % Nucleated RBC % Sodium Potassium Chloride Carbon Dioxide Anion Gap BUN Creatinine Est GFR (CKD-EPI)AfAm Est GFR (CKD-EPI)NonAf POC Glucometer Random Glucose Calcium Phosphorus Magnesium Total Bilirubin AST ALT Alkaline Phosphatase Creatine Kinase Creatine Kinase Index CK-MB (CK-2) Troponin I Total Protein Albumin Urine Color Urine Appearance Urine pH Ur Specific [place] Urine Protein Urine Glucose (UA) Urine Ketones Urine Blood Urine Nitrite Urine Bilirubin Urine Urobilinogen Ur Leukocyte Esterase Urine WBC (Auto) Urine RBC (Auto) Urine Casts (Auto) U Epithel Cells (Auto) Urine Bacteria (Auto) Opiates Screen Methadone Screen Barbiturate Screen Phencyclidine Screen Ur Amphetamines Screen MDMA (Ecstasy) Screen Benzodiazepines Screen Cocaine Screen U Marijuana (THC) Screen Alcohol, Quantitative HIV 1&2 Antibody Screen Negative HIV P24 Antigen Negative HOSPITAL COURSE: Date of Admission:05/30/19 Date of Discharge: 05/30/19 - Problems (1) Prophylactic measure Assessment/Plan: resume regualr diet Dispo:discharge to home-medcially stable Code(s): Z29.9 - ENCOUNTER FOR PROPHYLACTIC MEASURES, UNSPECIFIED (2) Intoxication by drug Assessment/Plan: tox screen positive for marijuana Counseled on cessation of ETOH/marijuana Code(s): F19.929 - OTH PSYCHOACTIVE SUBSTANCE USE, UNSP WITH INTOXICATION, UNSP (3) ETOH abuse Assessment/Plan: Code(s): F10.10 - ALCOHOL ABUSE, UNCOMPLICATED (4) Leukocytosis Assessment/Plan: resolved without intervention Code(s): D72.829 - ELEVATED WHITE BLOOD CELL COUNT, UNSPECIFIED (5) Laceration Code(s): [id number] - (6) Syncope Assessment/Plan: syncopal w/u negative Code(s): R55 - SYNCOPE AND COLLAPSE Qualifiers: Syncope type: unspecified Qualified Code(s): R55 - Syncope and collapse medically cleared for discharge to home Minutes to complete discharge: 45 Discharge Summary Problems reviewed: Yes Reason For Visit: SYNCOPE Current Active Problems Closed head injury (Acute) Contusion of right shoulder (Acute) ETOH abuse (Acute) Intoxication by drug (Acute) Laceration (Acute) Leukocytosis (Acute) Prophylactic measure (Acute) Syncope (Acute) Hospital Course: HOSPITAL COURSE: Date of Admission:05/30/19 Date of Discharge: 05/30/19 - Problems (1) Prophylactic measure Assessment/Plan: resume regualr diet Dispo:discharge to home-medcially stable Code(s): Z29.9 - ENCOUNTER FOR PROPHYLACTIC MEASURES, UNSPECIFIED (2) Intoxication by drug Assessment/Plan: tox screen positive for marijuana Counseled on cessation of ETOH/marijuana Code(s): F19.929 - OTH PSYCHOACTIVE SUBSTANCE USE, UNSP WITH INTOXICATION, UNSP (3) ETOH abuse Assessment/Plan: Code(s): F10.10 - ALCOHOL ABUSE, UNCOMPLICATED (4) Leukocytosis Assessment/Plan: resolved without intervention Code(s): D72.829 - ELEVATED WHITE BLOOD CELL COUNT, UNSPECIFIED (5) Laceration Code(s): [id number] - (6) Syncope Assessment/Plan: syncopal w/u negative Code(s): R55 - SYNCOPE AND COLLAPSE Qualifiers: Syncope type: unspecified Qualified Code(s): R55 - Syncope and collapse medically cleared for discharge to home Health Concerns: Drug and alcohol abuse Condition: Improved - Instructions Diet, Activity, Other Instructions: The Echocardiogram and the carotid dopplers were negative the xray of your shoulder and arm were without any broken bones. You have some soft tissue swelling and bruising that should subside in a week. If it continues make an appointment with a orthopedic doctor or follow with your primary care doctor You can take 600mg of motrin every 6 hours. If that doesn't relieve the pain you can take 1-50mg tablet of tramadol. Do not drink or use drugs while taking this mediations. Use one of the nicotine patches for 1 month. If you are still smoking follow up with your primary care doctor Drink plenty of fluids. Resume your normal diet. Follow up with your primary doctor. Referrals: Reid Gomez MD [Primary Care Provider] - Disposition: HOME - Home Medications Comprehensive Discharge Medication List: Ambulatory Orders Multivitamins [Multivit ([facility] Formulary)] 1 tab PO DAILY tab 05/30/19 Nicotine [Nicotine Patch 14mg/24 hr] 1 each TD DAILY #30 patch.td24 05/30/19 traMADol HCL [Ultram -] 50 mg PO Q6H PRN #14 tablet MDD 4 pills 05/30/19 Problem List - Problems (1) Prophylactic measure Code(s): Z29.9 - ENCOUNTER FOR PROPHYLACTIC MEASURES, UNSPECIFIED (2) Intoxication by drug Code(s): F19.929 - OTH PSYCHOACTIVE SUBSTANCE USE, UNSP WITH INTOXICATION, UNSP Qualifiers: Complication of substance-induced condition: uncomplicated Qualified Code(s ): F19.920 - Other psychoactive substance use, unspecified with intoxication, uncomplicated (3) ETOH abuse Code(s): F10.10 - ALCOHOL ABUSE, UNCOMPLICATED (4) Leukocytosis Code(s): D72.829 - ELEVATED WHITE BLOOD CELL COUNT, UNSPECIFIED (5) Laceration Code(s): [id number] - (6) Syncope Code(s): R55 - SYNCOPE AND COLLAPSE Qualifiers: Syncope type: unspecified Qualified Code(s): R55 - Syncope and collapse This patient is new to me today: Yes Date on this admission: 05/30/19 Emergency Visit: Yes ED Registration Date: 05/30/19 Care time: The patient presented to the Emergency Department on the above date and was hospitalized for further evaluation of their emergent condition. Critical Care patient: No - Discharge Referral Referred to [facility] No
[2019-05-30 14:04] VITALS: BP 123/66; TEMP 97.7
[2019-05-31] MEDS ORDERED: chlordiazePOXIDE 5 MG CAPSULE PO SCH (05:00)
--- NOTE | 2019-05-31 11:26 | EKG ---
Test Reason : Blood Pressure : / mmHG Vent. Rate : 069 BPM Atrial Rate : 069 BPM P-R Int : 120 ms QRS Dur : 102 ms QT Int : 400 ms P-R-T Axes : 057 089 076 degrees QTc Int : 428 ms NORMAL SINUS RHYTHM NONSPECIFIC ST ABNORMALITY ABNORMAL ECG NO PREVIOUS ECGS AVAILABLE Confirmed by MD Rose, Dejuan ([id number]) on 05/31/2019 11:26:13 AM Referred By: Confirmed By:Dejuan Rose MD
--- NOTE | 2019-05-31 11:31 | EKG ---
Test Reason : Blood Pressure : / mmHG Vent. Rate : 070 BPM Atrial Rate : 070 BPM P-R Int : 122 ms QRS Dur : 104 ms QT Int : 408 ms P-R-T Axes : 053 087 064 degrees QTc Int : 440 ms NORMAL SINUS RHYTHM NORMAL ECG WHEN COMPARED WITH ECG OF 29-MAY-2019 23:31, NO SIGNIFICANT CHANGE WAS FOUND Confirmed by MD Rose Edward ([id number]) on 05/31/2019 11:31:17 AM Referred By: Confirmed By:Dejuan Rose MD
[2019-06-01] MEDS ORDERED: chlordiazePOXIDE HCL 10 MG CAPSULE PO PRN
[2019-06-01] MEDS ORDERED: chlordiazePOXIDE HCL 10 MG CAPSULE PO SCH (05:00)
[2019-06-02] MEDS ORDERED: chlordiazePOXIDE HCL 10 MG CAPSULE PO ONE (05:00)
== END 2019-05-30 14:46 | disposition home or self-care (01) | DRG 775 ==
LOC: JER 23:19 → JERBED 05-30 02:42 → J4S 05-30 04:57 → OBSVTOIN 05-30 05:46
PROVIDERS: ADMIT Internal Medicine; ATTEND Nurse Practitioner Acute Care
PROC: HZ2ZZZZ Detoxification Services for Substance Abuse Treatment (ICD-10-PCS; principal; 2019-05-30)
DX: F10.129 Alcohol abuse with intoxication, unspecified (principal); J45.909 Unspecified asthma, uncomplicated; R11.0 Nausea; R42 Dizziness and giddiness; R55 Syncope and collapse; F12.10 Cannabis abuse, uncomplicated; D72.829 Elevated white blood cell count, unspecified; S40.011A Contusion of right shoulder, initial encounter; S06.9X1A Unspecified intracranial injury with loss of consciousness of 30 minutes or less, initial encounter; W19.XXXA Unspecified fall, initial encounter; Y93.9 Activity, unspecified; Y92.488 Other paved roadways as the place of occurrence of the external cause
CPT/HCPCS: 36415; 70450-TC; 71046-TC-FY; 73000-TC-RT-FY; 73030-TC-RT-FY; 80053; 80307; 81003; 82550; 82553; 82962; 83735; 84100; 84484; 85025; 87389; 87491; 87591; 90715; 93005; 93010; 93306-TC; 93880-TC; 99285-25; G0378; J0131; J7030

== ENCOUNTER 2020-01-25 14:18 | Emergency (ER) | payer OTHER ==
[2020-01-25 14:31] VITALS: TEMP 98.8; BMI 20.4
--- NOTE | 2020-01-25 14:33 | PDOC ---
Rapid Medical Evaluation Time Seen by Provider: 01/25/20 14:28 Medical Evaluation: Allergies Allergy/AdvReac Type Severity Reaction Status Date / Time gluten Allergy Mild Verified 05/30/19 05:30 pollen extracts Allergy Mild Verified 05/30/19 05:30 01/25/20 14:28 I have performed a brief in-person evaluation of this patient. The patient presents with a chief complaint of: Abd pain and diarrhea on and off x several weeks. No melena but states stool "very dark brown". No BRBPR, n/v/f/c. H/o asthma, admits to cocaine use and states "I drink a lot". Also drinks a lot of 5-hr energy drinks per pt. States he's always had "GI issues" since high school. Does not remember seeing a GI specialist in the past Pertinent physical exam findings:stable, well dom I have ordered the following:labs The patient will proceed to the ED for further evaluation. Discharge Disposition - Diagnosis Abdominal pain Qualifiers: Abdominal location: upper abdomen, unspecified Qualified Code(s): R10.10 - Upper abdominal pain, unspecified Diarrhea Qualifiers: Diarrhea type: unspecified type Qualified Code(s): R19.7 - Diarrhea, unspecified - Referrals - Patient Instructions - Post Discharge Activity
[2020-01-25 16:24] LABS: BASO % 0.3 % (0-2.0); EOS % 2.1 % (0-4.5); HEMATOCRIT 51.6 % (35.4-49); HEMOGLOBIN 17.7 GM/dL (11.7-16.9); LYMPH % 19.8 % (8-40); MCH 31.2 pg (25.7-33.7); MCHC 34.2 g/dl (32.0-35.9); MEAN CELL VOLUME 91.1 fl (80-96); MONO % 8.8 % (3.8-10.2); PLATELET COUNT 178 K/MM3 (134-434); RBC 5.67 M/mm3 (4.00-5.60); RDW 12.5 % (11.9-15.9); WHITE BLOOD COUNT 10.7 K/mm3 (4.0-10.0)
[2020-01-25 16:52] LABS: EPI CELLS 7 /uL (0-25.1); HYALINE CASTS 2 /uL (0-3.1); PH,URINE 6.5 (5.0-8.0); URINE APPEARANCE CLEAR; URINE BACTERIA 6 /uL (0-1359); URINE BILIRUBIN NEGATIVE (NEGATIVE); URINE COLOR YELLOW; URINE GLUCOSE (UA) NEGATIVE (NEGATIVE); URINE KETONE NEGATIVE (NEGATIVE); URINE LEUK ESTERASE NEGATIVE (NEGATIVE); URINE NITRITE NEGATIVE (NEGATIVE); URINE PROTEIN 2+ (NEGATIVE); URINE RBC 4 /uL (0-23.9); URINE WBC 1 /uL (0-25.8)
[2020-01-25 16:53] LABS: ALBUMIN 5.2 g/dl (3.4-5.0); BILIRUBIN,TOTAL 1.2 mg/dL (0.2-1); BLOOD UREA NITROGEN 16.7 mg/dL (7-18); CALCIUM 9.8 mg/dL (8.5-10.1); CREATININE 1.2 mg/dL (0.55-1.3); POTASSIUM 3.9 mmol/L (3.5-5.1); TOT PROT 8.2 g/dl (6.4-8.2)
--- NOTE | 2020-01-25 18:05 | PDOC ---
History of Present Illness - General Chief Complaint: Diarrhea Stated Complaint: ABD PAIN Time Seen by Provider: 01/25/20 14:28 - History of Present Illness Initial Comments: 01/25/20 18:04 19-year-old male with intermittent abdominal pain nausea, constipation and diarrhea over the last year he does use cocaine Past History - Medical History Allergies/Adverse Reactions: Allergies Allergy/AdvReac Type Severity Reaction Status Date / Time gluten Allergy Mild Verified 01/25/20 15:19 pollen extracts Allergy Mild Verified 01/25/20 15:19 Home Medications: Ambulatory Orders NK [No Known Home Medication] 01/25/20 Asthma: Yes COPD: No - Surgical History Abdominal Surgery: Yes (hernia repair) GI Surgery: Yes (hernia repir x 2) - Immunization History Immunization Up to Date: Yes - Psycho-Social/Smoking History Smoking History: Current every day smoker Have you smoked in the past 12 months: Yes Number of Cigarettes Smoked Daily: 20 Information on smoking cessation initiated: No 'Breaking Loose' booklet given: 05/30/19 - Substance Abuse Hx (Audit-C & DAST Scrn) How often the patient has a drink containing alcohol: 4 0r more times/wk Number of drinks the patient has on a typical day: 1 or 2 Score: In Men: 4 or > Positive; In Women: 3 or > Positive: 4 Screen Result (Pos requires Nsg. Audit-10AR): Positive In the last yr the pt used illegal drug/Rx for NonMed reason: Yes Score: Yes response is considered Positive: 1 Screen Result (Positive result requires Nsg. DAST-10): Positive Review of Systems - Review of Systems ABD/GI: Yes: See HPI, Constipated, Diarrhea, Nausea *Physical Exam - Vital Signs Last Vital Signs Temp Pulse Resp BP Pulse Ox 98.8 F 93 H 18 125/70 99 01/25/20 14:28 01/25/20 14:28 01/25/20 14:28 01/25/20 14:28 01/25/20 14:28 - Physical Exam 01/25/20 18:04 GENERAL: The patient is awake, alert, and fully oriented, in no acute distress. HEAD: Normal with no signs of trauma. EYES: sclera anicteric, conjunctiva clear. ENT: Ears normal tympanic membranes normal oropharynx clear uvula midline NECK: Normal range of motion LUNGS: Breath sounds equal, clear to auscultation bilaterally. No wheezes, and no crackles. HEART: S1 and S2 without murmur, rub or gallop. ABDOMEN: Soft, nontender, normoactive bowel sounds. No guarding, no rebound. No masses. EXTREMITIES: Normal range of motion, no edema. No clubbing or cyanosis. No cords, erythema, or tenderness. NEUROLOGICAL: Cranial nerves II through XII grossly intact. PSYCH: Normal mood, normal affect. SKIN: Warm, Dry, normal turgor, no rashes or lesions noted. ED Treatment Course - LABORATORY CBC & Chemistry Diagram: 01/25/20 15:41 01/25/20 15:21 - ADDITIONAL ORDERS Additional order review: Laboratory Results 01/25/20 01/25/20 01/25/20 15:44 15:21 15:08 Sodium 143 Potassium 3.9 Chloride 106 Carbon Dioxide 26 Anion Gap 10 BUN 16.7 Creatinine 1.2 Est GFR (CKD-EPI)AfAm 100.28 Est GFR (CKD-EPI)NonAf 86.53 Random Glucose 81 Calcium 9.8 Total Bilirubin 1.2 H AST 47 H ALT 55 Alkaline Phosphatase 75 Total Protein 8.2 Albumin 5.2 H Lipase 67 L Urine Color Yellow Urine Appearance Clear Urine pH 6.[address] 1.025 Urine Protein 2+ H Urine Glucose (UA) Negative Urine Ketones Negative Urine Blood Negative Urine Nitrite Negative Urine Bilirubin Negative Urine Urobilinogen 1.0 Ur Leukocyte Esterase Negative Urine WBC (Auto) 1 Urine RBC (Auto) 4 Urine Casts (Auto) 2 U Epithel Cells (Auto) 7 Urine Bacteria (Auto) 6 Stool Occult Blood Negative 01/25/20 15:41 RBC 5.67 H MCV 91.1 MCHC 34.2 RDW 12.5 MPV 12.0 H D Neutrophils % 69.0 Lymphocytes % 19.8 Monocytes % 8.8 Eosinophils % 2.1 Basophils % 0.3 Medical Decision Making - Medical Decision Making 01/25/20 18:04 Benign abdominal examination, negative Hemoccult, will have patient follow-up with gastroenterology Discharge - Discharge Information Problems reviewed: Yes Clinical Impression/Diagnosis: Abdominal pain Qualifiers: Abdominal location: upper abdomen, unspecified Qualified Code(s): R10.10 - Upper abdominal pain, unspecified Diarrhea Qualifiers: Diarrhea type: unspecified type Qualified Code(s): R19.7 - Diarrhea, unspecified Condition: Stable Disposition: HOME - Admission No - Follow up/Referral Referrals: Ele Carrizales MD [Primary Care Provider] - Dillan Singh MD [Staff Physician] - - Patient Discharge Instructions Additional Instructions: Return to the emergency room for worsening symptoms and without fail follow-up with gastroenterology in 1 to 2 days for further evaluation and treatment options. - Post Discharge Activity
[2020-01-25 18:32] VITALS: BP 129/84; PULSE 70
== END 2020-01-25 19:12 | disposition home or self-care (01) ==
LOC: JER 14:18
DX: R10.10 Upper abdominal pain, unspecified (principal); R19.7 Diarrhea, unspecified
CPT/HCPCS: 36415; 80053; 81003; 82272; 83690; 85025; 99283-25

== ENCOUNTER 2021-05-02 20:45 | Emergency (ER) | payer OTHER ==
[2021-05-02 21:08] VITALS: BP 121/86; PULSE 79; BMI 19.8
[2021-05-02 22:22] LABS: BASO % 0.4 % (0-2.0); EOS % 2.7 % (0-4.5); HEMATOCRIT 44.1 % (35.4-49); HEMOGLOBIN 15.3 GM/dL (11.7-16.9); LYMPH % 35.6 % (8-40); MCH 30.4 pg (25.7-33.7); MCHC 34.7 g/dl (32.0-35.9); MEAN CELL VOLUME 87.7 fl (80-96); MEAN PLT VOLUME 10.3 fl (7.5-11.1); MONO % 8.7 % (3.8-10.2); NEUT % 52.6 % (42.8-82.8); PLATELET COUNT 126 10^3/uL (134-434); RBC 5.03 M/mm3 (4.00-5.60); RDW 12.5 % (11.9-15.9); WHITE BLOOD COUNT 7.1 K/mm3 (4.0-10.0)
[2021-05-02 22:30] LABS: INR 1.19 (0.83-1.09); PROTHROMBIN TIME (PATIENT) 13.9 SEC (9.7-13.0)
[2021-05-02 22:42] LABS: CHLORIDE 106 mmol/L (98-107); SODIUM 139 mmol/L (136-145)
[2021-05-02 22:44] LABS: CALCIUM 9.3 mg/dL (8.5-10.1)
[2021-05-02 22:46] LABS: ALBUMIN 4.5 g/dl (3.4-5.0); ANION GAP 9 MMOL/L (8-16); BLOOD UREA NITROGEN 19.7 mg/dL (7-18); CO2 24 mmol/L (21-32)
[2021-05-02 22:49] LABS: CREATININE 0.8 mg/dL (0.55-1.3); GLUCOSE,RANDOM 84 mg/dL (74-106); SGOT/AST 45 U/L (15-37); SGPT/ALT 53 U/L (13-61)
[2021-05-02 22:51] LABS: ALK PHOS 63 U/L (45-117); TOT PROT 7.4 g/dl (6.4-8.2)
[2021-05-02 22:58] VITALS: TEMP 98.3
[2021-05-03] MEDS ORDERED: NAPROXEN 500 MG TABLET PO ONE (00:14)
[2021-05-03] MEDS ORDERED: NAPROXEN 500 MG TABLET ONE (00:17)
== END 2021-05-03 00:31 | disposition home or self-care (01) ==
LOC: JER 20:45
DX: R07.9 Chest pain, unspecified (principal)
CPT/HCPCS: 36415; 71046-TC-FY; 80053; 82550; 82553; 84443; 84484; 85025; 85610; 93005; 93010; 99284-25; C9803; U0003; U0005

== ENCOUNTER 2022-09-03 18:02 | Emergency (ER) | payer OTHER ==
[2022-09-03 18:18] VITALS: BP 116/65; PULSE 68; RESP 20; TEMP 98; BMI 22.4
[2022-09-03] MEDS ORDERED: IBUPROFEN 600 MG TABLET (FP) PO ONE ×2 (20:13→20:22)
== END 2022-09-03 22:42 | disposition home or self-care (01) ==
LOC: JERFT 18:02
DX: G44.319 Acute post-traumatic headache, not intractable (principal)
CPT/HCPCS: 70450-TC; 99284-25